=== PATIENT | female | born 1990 | race African-American/Black ===

== ENCOUNTER 2025-04-05 06:02 | Emergency (ER) | payer OTHER, MEDICAID ==
[~2025-04-05] VITALS: Ht 165.1 cm; Wt 113.0 kg
[2025-04-05 07:51] LABS: BASOPHILS % 0.3 % (0.0-2.0); EOSINOPHILS % 0.4 % (0.0-5.0); HEMATOCRIT. 39.0 % (36.0-48.0); HEMOGLOBIN. 13.2 g/dL (12.0-16.0); LYMPHOCYTES % 19.6 % (20.0-50.0); MEAN PLATELET VOLUME 9.9 fl (7.4-10.4); MONOCYTES % 6.0 % (2.0-8.0); NEUTROPHILS % 73.7 % (40.0-76.0); PLATELET 217 x1000/uL (130-400); RED BLOOD CELL COUNT 4.00 mill/uL (4.2-5.4); RED CELL DISTRIBUTION WIDTH 14.2 % (11.6-14.6)
[2025-04-05 08:17] LABS: HCG SCREEN NEGATIVE
[2025-04-05 08:21] LABS: CREATININE 0.9 mg/dL (0.6-1.0); ETHANOL BLOOD 234 mg/dL (<10); UREA NITROGEN BLOOD 7 mg/dL (9-23)
[2025-04-05 10:56] VITALS: O2SAT 100
[2025-04-05] MEDS: HALOPERIDOL LACTATE 5MG/ML VIAL IM ONE (10:56)
[2025-04-05] MEDS: MIDAZOLAM HCL 2 MG/2 ML VIAL IM ONE (10:56)
[2025-04-05] MEDS: HYDROCODONE/ACETAMINOPHEN 5/325MG TABLET PO ONE (22:59)
[2025-04-06 07:37] LABS: CLARITY URINE CLEAR (CLEAR); COLOR URINE DARK YELLOW (YELLOW); GLUCOSE URINE NEGATIVE (NEGATIVE); KETONES URINE 2+ (NEGATIVE); LEUKOCYTE ESTERASE URINE NEGATIVE (NEGATIVE); NITRITE URINE NEGATIVE (NEGATIVE); OCCULT BLOOD URINE NEGATIVE (NEGATIVE); PH URINE 6.0 (4.5-8.0); PROTEIN URINE NEGATIVE (NEGATIVE); SPECIFIC GRAVITY URINE 1.025 (1.005-1.030); UROBILINOGEN URINE 1.0 E.U./dL (0.2-1.0)
[2025-04-06 07:55] LABS: *AMPHETAMINES SCREEN URINE NEGATIVE (NEGATIVE); *BARBITURATES SCREEN URINE NEGATIVE (NEGATIVE); *BENZODIAZEPINES SCREEN URINE PRESUMPTIVE POSITIVE (NEGATIVE); *COCAINE SCREEN URINE NEGATIVE (NEGATIVE); CANNABINOID URINE SCREEN PRESUMPTIVE POSITIVE (NEGATIVE); ECSTASY MDMA SCREEN URINE NEGATIVE (NEGATIVE); METHADONE URINE SCREEN NEGATIVE (NEGATIVE); OPIATES URINE SCREEN PRESUMPTIVE POSITIVE (NEGATIVE); PHENCYCLIDINE URINE SCREEN NEGATIVE (NEGATIVE)
[2025-04-06] MEDS: ARIPIPRAZOLE 5MG TABLET PO SCH (09:15)
[2025-04-06] MEDS: HYDROCODONE/ACETAMINOPHEN 5/325MG TABLET PO ONE (14:56)
[2025-04-06] MEDS: IBUPROFEN 400MG TABLET PO ONE (14:56)
[2025-04-06] MEDS: TRAZODONE HCL 50MG TABLET PO SCH (21:00)
[2025-04-07] MEDS: TRAMADOL 50MG TABLET PO ONE (18:19)
[2025-04-07] MEDS: ACETAMINOPHEN 325MG TABLET PO ONE (21:49)
[2025-04-07] MEDS: ONDANSETRON 4MG ODT PO ONE (21:50)
[2025-04-08 09:45] VITALS: BP 122/80; PULSE 88; RESP 16; TEMP 36.6; O2SAT 98
== END 2025-04-08 12:41 | disposition home or self-care (01) ==
LOC: ER 06:02
DX: R46.2 Strange and inexplicable behavior (principal); Z59.00 Homelessness unspecified; Z79.899 Other long term (current) drug therapy; Z20.822 Contact with and (suspected) exposure to COVID-19
CPT/HCPCS: 80305; 80048; 81003; 80307; 80329; 80320; 84703; 85025; 36415; 93005; 96372; 99285; 87426; J1630; J2250; Z7610; Q0162; G0480